=== PATIENT | male | born 1990 | race Caucasian/White ===

== ENCOUNTER 2020-10-18 19:38 | Emergency (ER) | payer SELFPAY ==
[~2020-10-18] VITALS: Ht 182.9 cm; Wt 140.0 kg
[~2020-10-18 19:38] MED LIST: AZIT-63 PO; NEOM10SO7 OT; ZOF4T PO
[2020-10-18 19:45] VITALS: BP 126/99
== END 2020-10-18 21:15 | disposition left against medical advice (07) ==
LOC: ER 19:38
DX: R06.02 Shortness of breath (principal); Z53.21 Procedure and treatment not carried out due to patient leaving prior to being seen by health care provider